=== PATIENT | female | born 1955 | race Native Hawaiian/Other Pacific Islander ===

== ENCOUNTER 2019-03-29 18:14 | Emergency (ER) | payer OTHER ==
[~2019-03-29] VITALS: Ht 172.7 cm; Wt 63.5 kg
[2019-03-29 22:08] VITALS: BP 145/74; TEMP 98.1
== END 2019-03-29 22:08 | disposition home or self-care (01) ==
LOC: ED 18:14
PROC: 0HQ0XZZ Repair Scalp Skin, External Approach (ICD-10-PCS; principal; 2019-03-29)
DX: S01.01XA Laceration without foreign body of scalp, initial encounter (principal); S06.0X0A Concussion without loss of consciousness, initial encounter; W22.8XXA Striking against or struck by other objects, initial encounter; Y93.89 Activity, other specified; Y92.018 Other place in single-family (private) house as the place of occurrence of the external cause
CPT/HCPCS: 90471; 90715; 99283